=== PATIENT | female | born 1950 | race Caucasian/White ===

== ENCOUNTER 2019-05-23 11:30 | Emergency (ER) | payer MEDICARE, OTHER ==
[2019-05-23 13:03] VITALS: BP 188/84; PULSE 76
[2019-05-23] MEDS ORDERED: Sodium Chloride 0.9% 10 ML Syringe FLUSH PRN (13:06)
[2019-05-23] MEDS ORDERED: Sodium Chloride 0.9% 1,000 ML IV ONE (13:07)
[2019-05-23] MEDS ORDERED: HYDROmorphone 1 MG/ML Syringe IVPUSH ONE (13:07)
[2019-05-23] MEDS ORDERED: Ondansetron 4 MG/2 ML SDV IV ONE (13:07)
[2019-05-23 13:40] LABS: ANION GAP 15.4; CHLORIDE,CL 102 mmol/L (101-111); SODIUM,NA 138 mmol/L (135-145)
[2019-05-23] MEDS ORDERED: Iopamidol 612 MG/ML 100 ML Bottle IVPUSH ONE (13:51)
--- NOTE | 2019-05-23 17:04 | EDM.PDOC ---
"Scribed by Ludivina Rivero 05/23/19 1510 for Henrry Huntley MD ED HPI GENERAL MEDICAL PROBLEM - General Chief Complaint: Gastrointestinal Problem Stated Complaint: STOMACH PROBLEMS Time Seen by Provider: 05/23/19 13:00 Source of Information: Reports: Patient, RN, RN Notes Reviewed History Limitations: Reports: No Limitations - History of Present Illness INITIAL COMMENTS - FREE TEXT/NARRATIVE: Patient is a [id number] female who reports that around 0800 this morning she noted that her stomach started to hurt. Patient points to her lower pelvic area all the way around to her right side up into her epigastric area. Reports she has not taken anything for the pain. Denies any other symptoms. Onset: Today Duration: Getting Worse Location: Reports: Abdomen Severity: Moderate Improves with: Reports: None Worsens with: Reports: None Associated Symptoms: Reports: No Other Symptoms Abdomen Pain Score (Numeric/FACES): 10 - Related Data Allergies Allergy/AdvReac Type Severity Reaction Status Date / Time codeine Allergy Cannot Verified 05/23/19 13:03 Remember Home Meds: Home Meds Calcium Citrate/Vitamin D3 [Citracal + D Maximum Caplet] 2 tab PO BID 10/06/13 [ History] HCTZ/Triamterene [Maxzide 25-37.5 MG] 1 tab PO DAILY 10/06/13 [History] Multivitamin [Multi Vitamin Daily] 1 tab PO DAILY 10/06/13 [History] Pregabalin [Lyrica] 75 mg PO BID 10/06/13 [History] azaTHIOprine [Imuran] 150 mg PO DAILY 10/06/13 [History] Olopatadine [Pataday 0.2% Ophth Soln] 1 drop EYEBOTH ASDIRECTED PRN 03/29/14 [ History] Esomeprazole Magnesium [Nexium] 40 mg PO DAILY 05/23/19 [History] Montelukast [Singulair] 10 mg PO DAILY 05/23/19 [History] Ursodiol 900 mg PO BID 05/23/19 [History] ED ROS GENERAL - Review of Systems Review Of Systems: Comprehensive ROS is negative, except as noted in HPI. ED EXAM, GI/ABD - Physical Exam Exam: See Below Exam Limited By: No Limitations General Appearance: Alert, WD/WN, No Apparent Distress Eyes: Bilateral: Normal Appearance Ears: Normal External Exam, Normal Canal, Hearing Grossly Normal, Normal TMs Nose: Normal Inspection, Normal Mucosa, No Blood Throat/Mouth: Other (dry mouth) Head: Atraumatic, Normocephalic Neck: Normal Inspection, Supple, Non-Tender, Full Range of Motion Respiratory/Chest: No Respiratory Distress Cardiovascular: Normal Peripheral Pulses, Regular Rate, Rhythm, No Edema, No Gallop, No JVD, No Murmur, No Rub (Female) Exam: Deferred Rectal (Female) Exam: Deferred Back Exam: Normal Inspection, Full Range of Motion, NT Extremities: Normal Inspection, Normal Range of Motion, Non-Tender, Normal Capillary Refill, No Pedal Edema Neurological: Alert, Oriented, CN II-XII Intact, Normal Cognition, Normal Gait, Normal Reflexes, No Motor/Sensory Deficits Psychiatric: Normal Affect, Normal Mood Skin Exam: Warm, Dry, Intact, Normal Color, No Rash Course - Vital Signs Last Recorded V/S: Last Vital Signs Temp 98.2 F 05/23/19 12:59 Pulse 76 05/23/19 12:59 Resp 20 05/23/19 12:59 BP 188/84 H 05/23/19 12:59 Pulse Ox 98 05/23/19 12:59 - Orders/Labs/Meds Orders: Active Orders 24 hr Category Date Time Status Peripheral IV Care [RC] . DIRECTED Care 05/23/19 13:07 Active CULTURE URINE [RM] Stat Lab 05/23/19 13:28 Received Sodium Chloride 0.9% [Saline Flush] Med 05/23/19 13:06 Active 10 ml FLUSH ASDIRECTED PRN Peripheral IV Insertion Adult [OM.PC] Stat Oth 05/23/19 13:06 Ordered Medication Orders Sodium Chloride (Saline Flush) 10 ml FLUSH ASDIRECTED PRN PRN Reason: Keep Vein Open Last Admin: 05/23/19 13:14 Dose: 10 ml Labs: Laboratory Tests 05/23/19 05/23/19 05/23/19 Range/Units 13:13 13:13 13:13 WBC 5.9 (5.0-10.0) 10^3/uL RBC 4.32 (4.2-5.4) 10^6/uL Hgb 14.3 (12.0-16.0) g/dL Hct 40.7 (37.0-47.0) % MCV 94.2 (80-100) fL MCH 33.1 (27.0-34.0) pg MCHC 35.1 H (33.0-35.0) g/dL Plt Count 129 L (150-450) 10^3/uL Neut % (Auto) 81.5 H (42.2-75.2) % Lymph % (Auto) 11.4 L (20.5-50.1) % [place] % (Auto) 6.3 (2-8) % Eos % (Auto) 0.5 L (1.0-3.0) % Baso % (Auto) 0.3 (0.0-1.0) % Sodium 138 (135-145) mmol/L Potassium 3.4 L (3.6-5.0) mmol/L Chloride 102 (101-111) mmol/L Carbon Dioxide 24.0 (21.0-31.0) mmol/L Anion Gap 15.4 BUN 16 (7-18) mg/dL Creatinine 0.6 (0.6-1.3) mg/dL Est Cr Clr Drug Dosing 69.00 mL/min Estimated GFR (MDRD) > 60 BUN/Creatinine Ratio 26.66 Glucose 97 (74-105) mg/dL Lactic Acid 2.0 (0.5-2.0) mmol/L Calcium 9.0 (8.4-10.2) mg/dl Total Bilirubin 1.5 H (0.2-1.0) mg/dL AST 31 (10-42) IU/L ALT 16 (10-60) IU/L Alkaline Phosphatase 57 (42-121) IU/L Total Protein 7.4 (6.7-8.2) g/dl Albumin 3.8 (3.2-5.5) g/dl Globulin 3.6 Albumin/Globulin Ratio 1.06 Amylase 103 H (28-100) U/L Lipase 31 (22-51) U/L Urine Color (YELLOW) Urine Appearance (CLEAR) Urine pH (5.0-9.0) Ur Specific Bath (1.005-1.030) Urine Protein (NEGATIVE) Urine Glucose (UA) (NEGATIVE) Urine Ketones (NEGATIVE) Urine Occult Blood (NEGATIVE) Urine Nitrite (NEGATIVE) Urine Bilirubin (NEGATIVE) Urine Urobilinogen (0.2-1.0) mg/dL Ur Leukocyte Esterase (NEGATIVE) Urine RBC /HPF Urine WBC (0-5/HPF) /HPF Ur Epithelial Cells (NOT SEEN) /HPF Urine Bacteria (0-FEW/HPF) /HPF Urine Mucus (NOT SEEN) /LPF 05/23/19 Range/Units 13:28 WBC (5.0-10.0) 10^3/uL RBC (4.2-5.4) 10^6/uL Hgb (12.0-16.0) g/dL Hct (37.0-47.0) % MCV (80-100) fL MCH (27.0-34.0) pg MCHC (33.0-35.0) g/dL Plt Count (150-450) 10^3/uL Neut % (Auto) (42.2-75.2) % Lymph % (Auto) (20.5-50.1) % [place] % (Auto) (2-8) % Eos % (Auto) (1.0-3.0) % Baso % (Auto) (0.0-1.0) % Sodium (135-145) mmol/L Potassium (3.6-5.0) mmol/L Chloride (101-111) mmol/L Carbon Dioxide (21.0-31.0) mmol/L Anion Gap BUN (7-18) mg/dL Creatinine (0.6-1.3) mg/dL Est Cr Clr Drug Dosing mL/min Estimated GFR (MDRD) BUN/Creatinine Ratio Glucose (74-105) mg/dL Lactic Acid (0.5-2.0) mmol/L Calcium (8.4-10.2) mg/dl Total Bilirubin (0.2-1.0) mg/dL AST (10-42) IU/L ALT (10-60) IU/L Alkaline Phosphatase (42-121) IU/L Total Protein (6.7-8.2) g/dl Albumin (3.2-5.5) g/dl Globulin Albumin/Globulin Ratio Amylase (28-100) U/L Lipase (22-51) U/L Urine Color Yellow (YELLOW) Urine Appearance Slightly cloudy (CLEAR) Urine pH 8.5 (5.0-9.0) Ur Specific [place] 1.020 (1.005-1.030) Urine Protein 30 H (NEGATIVE) Urine Glucose (UA) Negative (NEGATIVE) Urine Ketones Trace H (NEGATIVE) Urine Occult Blood Trace-intact H (NEGATIVE) Urine Nitrite Negative (NEGATIVE) Urine Bilirubin Negative (NEGATIVE) Urine Urobilinogen 1.0 (0.2-1.0) mg/dL Ur Leukocyte Esterase Trace H (NEGATIVE) Urine RBC 0-5 /HPF Urine WBC 0-5 (0-5/HPF) /HPF Ur Epithelial Cells Few (NOT SEEN) /HPF Urine Bacteria Rare (0-FEW/HPF) /HPF Urine Mucus Few H (NOT SEEN) /LPF Meds: Medications Generic Name Dose Route Start Last Admin Trade Name Freq PRN Reason Stop Dose Admin Sodium Chloride 10 ml 05/23/19 13:06 05/23/19 13:14 Saline Flush FLUSH 10 ml ASDIRECTED PRN Administration Keep Vein Open Discontinued Medications Generic Name Dose Route Start Last Admin Trade Name Freq PRN Reason Stop Dose Admin Hydromorphone HCl 1 mg 05/23/19 13:07 05/23/19 13:14 Dilaudid IVPUSH 05/23/19 13:08 1 mg ONETIME ONE Administration Sodium Chloride 1,000 mls @ 999 mls/hr 05/23/19 13:07 05/23/19 13:14 Normal Saline IV 05/23/19 14:07 999 mls/hr .BOLUS ONE Administration Iopamidol 100 ml 05/23/19 13:51 05/23/19 14:32 Isovue-300 (61%) IVPUSH 05/23/19 13:52 100 ml ONETIME ONE Administration Ondansetron HCl 4 mg 05/23/19 13:07 05/23/19 13:14 Zofran IV 05/23/19 13:08 4 mg ONETIME ONE Administration - Radiology Interpretation Free Text/Narrative:: [facility] Final Radiology Report Call: [phone] assistance Online chat: [email or web address] Name: LEON RAMEY Age: 68Years F Date: 05/23/2019 SSN: -- : [id number] Study: CT ABDOMEN/PELVIS W Requesting Physician: HENRRY HUNTLEY Images: [id number] Addl Studies: Provided Clinical History: Contrast: With Contrast Medium: Isovue 300 Contrast Amount: 100 mL Contrast Method: LAC Page 1 of 2 PROCEDURE INFORMATION: Exam: CT Abdomen And Pelvis With Contrast Exam date and time: 05/23/2019 2:08 PM Age: 68 years old Clinical indication: Abdominal pain; Localized; Right lower quadrant (rlq) TECHNIQUE: Imaging protocol: Computed tomography of the abdomen and pelvis with intravenous contrast. Radiation optimization: All CT scans at this facility use at least one of these dose optimization techniques: automated exposure control; mA and/or kV adjustment per patient size (includes targeted exams where dose is matched to clinical indication); or iterative reconstruction. Contrast material: ISOVUE 300; Contrast volume: 100 ml; Contrast route: LAC; COMPARISON: CT Abdomen Pelvis w Cont 07/08/2018 2:25 PM FINDINGS: Lungs: Atelectatic changes noted within the lung bases. Heart: The heart demonstrates mild diffuse enlargement. Liver: There is cortical irregularity of the liver with decreased attenuation present consistent with fatty infiltration and possible hepatocellular disease such as cirrhosis. Gallbladder and bile ducts: Multiple calcified gallstones are present. Pancreas: The pancreas is normal. Spleen: Splenomegaly is present. Adrenals: The adrenal glands are normal. Kidneys and ureters: The kidneys are normal. Stomach and bowel: Mild diverticulosis is present in the distal colon. Appendix: A normal appendix is identified. Intraperitoneal space: No significant fluid collection. LEON RAMEY | Final Radiology Report CONFIDENTIALITY STATEMENT This report is intended only for use by the referring physician, and only in accordance with law. If you received this in error, call [phone]. Page 2 of 2 Vasculature: The vasculature demonstrates diffuse mild atherosclerotic calcification. The vasculature demonstrates diffuse mild atherosclerotic calcification. Lymph nodes: No enlarged lymph nodes. Bladder: The bladder is normal. Reproductive: The uterus is normal. Bones/joints: The lumbar spine demonstrates mild degenerative changes at multiple levels. Soft tissues: Right inguinal hernia is present with fluid density noted within the canal. IMPRESSION: 1. There is cortical irregularity of the liver with decreased attenuation present consistent with fatty infiltration and possible hepatocellular disease such as cirrhosis. 2. Splenomegaly is present. 3. Multiple calcified gallstones are present. 4. Right inguinal hernia is present with fluid density noted within the canal. 5. Mild diverticulosis is present in the distal colon. 6. A normal appendix is identified. Thank you for allowing us to participate in the care of your patient. Dictated and Authenticated by: Brandon Auguste DO 05/23/2019 3:00 PM Central Time ([place] & [place]) Addendum created by Brandon Auguste DO on 05/23/2019 4:41 PM Central Time ([place] & [place]) There is no bowel present within the right inguinal hernia. Fluid-filled density is noted. Findings are indeterminate. Initial Report created on 05/23/2019 3:00 PM Central Time ([place] & [place]) - Re-Assessments/Exams Free Text/Narrative Re-Assessment/Exam: 05/23/19 16:[address] Garay via [facility]. She was unable to determine if the fluid filled Rt ing. hernia contained bowel or not. I requested an addendum to the radiologist's report, which states there is no bowel contained in the hernia. Being the hernia does not contain bowel, and the pt's pain has been relieved, the pt may f/u in surgery clinic for further evaluation. Departure - Departure Time of Disposition: 17:00 Disposition: Home, Self-Care 01 Condition: Good Clinical Impression: Right inguinal hernia - Discharge Information *PRESCRIPTION DRUG MONITORING PROGRAM REVIEWED*: No *COPY OF PRESCRIPTION DRUG MONITORING REPORT IN PATIENT DIANELYS: No Instructions: Inguinal Hernia, Adult, [id number] Forms: ED Department Discharge Additional Instructions: Light activity as tolerated. Avoid heavy lifting, straining, or coughing. Call [facility] in [place] to schedule an appointment. Return to ER or your primary clinic if the pain becomes severe. Sepsis Event Note - Evaluation Sepsis Screening Result: No Definite Risk - Focused Exam Vital Signs: Vital Signs Temp Pulse Resp BP Pulse Ox 05/23/19 12:59 98.2 F 76 20 188/84 H 98 Date Exam was Performed: 05/23/19 Time Exam was Performed: 16:57 - My Orders Last 24 Hours: My Active Orders 05/23/19 13:06 Sodium Chloride 0.9% [Saline Flush] 10 ml FLUSH ASDIRECTED PRN Peripheral IV Insertion Adult [OM.PC] Stat 05/23/19 13:07 Peripheral IV Care [RC] . DIRECTED 05/23/19 13:28 CULTURE URINE [RM] Stat - Assessment/Plan Last 24 Hours: My Active Orders 05/23/19 13:06 Sodium Chloride 0.9% [Saline Flush] 10 ml FLUSH ASDIRECTED PRN Peripheral IV Insertion Adult [OM.PC] Stat 05/23/19 13:07 Peripheral IV Care [RC] . DIRECTED 05/23/19 13:28 CULTURE URINE [RM] Stat I have read and agree with the documentation that has been completed regarding this visit. By signing this record, I attest that the documentation was completed in my physical presence and is an accurate record of the encounter."
== END 2019-05-23 17:15 | disposition home or self-care (01) ==
LOC: DL.ED 11:30
DX: K40.90 Unilateral inguinal hernia, without obstruction or gangrene, not specified as recurrent (principal); Z79.899 Other long term (current) drug therapy
CPT/HCPCS: 36415; 74177; 80053; 81001; 82150; 83605; 83690; 85025; 87086; 96361; 96374; 96375; 99284-25; J1170; J2405; J7030; Q9967

== ENCOUNTER → 2019-06-02 | Day surgery (SDC) | payer MEDICARE, OTHER ==
[~2019-06-02] MED LIST: Dextrose 5%-0.45% NaCl 1,000 ML IV SCH; Midazolam 1 MG/ML 2 ML SDV IV ONE; Midazolam 1 MG/ML 2 ML SDV ONE; Sodium Chloride 0.9% 10 ML Syringe FLUSH PRN; fentaNYL 100 MCG/2 ML SDV IV ONE; fentaNYL 100 MCG/2 ML SDV ONE
[2019-06-02 11:21] VITALS: BP 120/55; PULSE 65
--- NOTE | 2019-06-02 16:00 | OR ---
DATE: 06/02/2019 PROCEDURE PERFORMED: Esophagogastroduodenoscopy and multiple pinch biopsies. INSTRUMENT USED: [id number]-HQ190 Olympus video panendoscope. PREMEDICATIONS: No oral or topical anesthesia used. Fentanyl 100 mcg intravenous, Versed 1.5 mg intravenous. Nasal O2 cannula. The procedure was done pulse oximetry, BP recording, and cardia monitor. INDICATION: The patient with chronic liver disease, on PPI, with persistent upper abdominal pain, unexplained, not responsive to medical measures. Esophagogastroduodenoscopy is performed for detection of any active erosive lesions, malignancy also under consideration, H. pylori status to be determined, endoscopic hemostasis therapy if needed. DESCRIPTION OF PROCEDURE: The scope was passed with ease. Adequate visualization of the esophagus was made from proximal to distal areas. No upper esophageal lesions identified. No distal esophageal stricture. No uphill or downhill esophageal varices. No Leann-Byers tear. No evidence of erosive esophagitis by Beltrami criteria. No esophageal polyp or tumor mass identified. Z-line was seen at around 39 cm distal to the oral verge, configuration consistent with grade 1 by ZAP classification. No proximal gastric varices noted. Gastric fundus examination by retroflexion showed no polypoid lesions. No esophageal polyp or mass lesions noted. No gastric ulcer, malignant mass, or vascular ectasia identified. Duodenal bulb showed no ulcer. Visualized second part of the duodenum is unremarkable. Multiple pinch biopsies were obtained from the gastric antrum and proximal body and sent for PyloriTek test for H. pylori, and if negative in an hour, tissues to be sent for histopathology. No bleeding was noted from any of the visualized areas at the completion of examination. Photographs were taken of the duodenal bulb, gastric antrum, fundus, and distal esophagus. IMPRESSION: Normal study. The patient tolerated the procedure well. [facility] /[id number]
== END | disposition home or self-care (01) ==
LOC: DL.ENDO 07:23
PROVIDERS: ATTEND Internal Medicine Gastroenterology
DX: K29.50 Unspecified chronic gastritis without bleeding (principal); K74.60 Unspecified cirrhosis of liver; K21.9 Gastro-esophageal reflux disease without esophagitis; I10 Essential (primary) hypertension; E66.09 Other obesity due to excess calories; Z79.899 Other long term (current) drug therapy; Z68.38 Body mass index [BMI] 38.0-38.9, adult
CPT/HCPCS: 43239; 87077; J2250; J3010; J7042

== ENCOUNTER 2020-03-14 06:00 | Day surgery (SDC) | payer MEDICARE, OTHER ==
[2020-03-14] MEDS ORDERED: Midazolam 1 MG/ML 2 ML SDV IV ONE ×7 (06:01→07:10)
[2020-03-14] MEDS ORDERED: fentaNYL 100 MCG/2 ML SDV IV ONE ×3 (06:01→07:00)
[2020-03-14] MEDS ORDERED: Midazolam 1 MG/ML 2 ML SDV ONE (06:12)
[2020-03-14] MEDS ORDERED: fentaNYL 100 MCG/2 ML SDV ONE (06:12)
[2020-03-14] MEDS ORDERED: Dextrose 5%-0.45% NaCl 1,000 ML IV SCH (06:45)
--- NOTE | 2020-03-14 07:41 | OR ---
DATE: 03/14/2020 PROCEDURES: Total colonoscopy and NBI. INSTRUMENT USED: [id number]-[id number] Olympus video colonoscope. PREMEDICATIONS: Fentanyl 100 mcg intravenous, Versed 4 mg intravenous, nasal O2 cannula. The procedure was done under pulse oximetry, BP recording, and catia designer. INDICATION: The patient with persistent right-sided lower abdominal pain, unexplained and not responsive to medical measures. Colonoscopic examination is done for detection of any polypoid lesions and removal, endoscopic hemostasis therapy if needed. DESCRIPTION OF PROCEDURE: Initial rectal exam showed external hemorrhoidal tags. Rigid anoscopy showed small internal hemorrhoids without bleeding from them. The colonoscope was passed with ease. Prominent venous channels were noted in the rectum, NBI views were obtained, photographs were taken. The scope was passed with ease up to the ileocecal area. Photographs were taken of the normal-appearing cecum, identified by landmarks of appendiceal orifice and double-bulged ileocecal folds. No bleeding was noted from any of the visualized areas at the commencement of the examination. Bowel preparation was found to be adequate, [place] scale 2 in the right colon, 3 in transverse and left colon, total score 8. No stricture. No vascular ectasia. No large isolated ulcerations seen. No evidence of diffuse inflammatory bowel disease in the form of friability, contact bleeding, or ulcerations. No polyp or tumor mass identified. Probing the proximal sides of folds and flexures using adequate distention and clearing up the stool material, withdrawal of the scope was made, cecum to rectum time over 6 minutes. No bleeding was noted from any of the visualized areas at the completion of examination. IMPRESSION: 1. External and internal hemorrhoids. 2. Rectal varices. The patient tolerated the procedure well. [facility] /[id number]
[2020-03-14 09:44] VITALS: BP 154/71; PULSE 64
== END 2020-03-14 09:19 | disposition home or self-care (01) ==
LOC: DL.ENDO 06:00
PROVIDERS: ATTEND Internal Medicine Gastroenterology
DX: K64.4 Residual hemorrhoidal skin tags (principal); K64.8 Other hemorrhoids; I86.8 Varicose veins of other specified sites; E66.09 Other obesity due to excess calories; K21.9 Gastro-esophageal reflux disease without esophagitis; Z68.37 Body mass index [BMI] 37.0-37.9, adult
CPT/HCPCS: 45378; J2250; J3010; J7042

== ENCOUNTER 2023-09-25 17:24 | Emergency (ER) | payer MEDICARE, OTHER ==
[2023-09-25] MEDS: Morphine 4 MG/ML Syringe IVPUSH ONE (17:52)
[2023-09-25 18:32] LABS: HEMATOCRIT 27.2 % (37.0-47.0); HEMOGLOBIN 8.9 g/dL (12.0-16.0); MEAN CORPUSCULAR HEMOGLOBIN 38.2 pg (27.0-34.0); MEAN CORPUSCULAR HGB CONC 32.7 g/dL (33.0-35.0); MEAN CORPUSCULAR VOLUME 116.7 fL (80-100); PLATELET COUNT,PLT 79 10^3/uL (150-450); RED BLOOD CELL COUNT 2.33 10^6/uL (4.2-5.4); WHITE BLOOD CELL COUNT,WBC 2.9 10^3/uL (5.0-10.0)
[2023-09-25 18:52] LABS: BASOPHILS PERCENT AUTO 0.3 % (0.0-1.0); EOSINOPHILS PERCENT AUTO 6.1 % (1.0-3.0); LYMPHOCYTES PERCENT AUTO 12.9 % (20.5-50.1); MONOCYTES PERCENT AUTO 13.6 % (2-8); NEUTROPHILS PERCENT AUTO 67.1 % (42.2-75.2)
[2023-09-25 18:53] VITALS: BP 125/95; PULSE 123
[2023-09-25 19:02] LABS: ALBUMIN 2.7 g/dL (3.4-5.0); ANION GAP 13.3 mEq/L (7-13); BILIRUBIN TOTAL 1.7 mg/dL (0.2-1.0); BUN/CREATININE RATIO 15.1 (No establ ref range); CALCIUM 8.1 mg/dL (8.5-10.1); CREATININE 0.73 mg/dL (0.55-1.02); EST CRCL DRUG DOSING (CG) 52.66 mL/min; POTASSIUM,K 4.3 mmol/L (3.5-5.1); PROTEIN TOTAL,TP 6.5 g/dL (6.4-8.2)
[2023-09-25 19:04] LABS: A/G RATIO 0.71; INR 1.6 (0.9-1.2); PROTHROMBIN TIME 16.3 SEC (9.0-12.0)
[2023-09-25 19:35] LABS: BAND PERCENT MAN 3 %; SEG NEUTROPHILS PERCENT MAN 76 % (42-75)
[2023-09-25 19:36] LABS: EOSINOPHILS PERCENT MAN 6 % (1-3); LYMPHOCYTES PERCENT MAN 11 % (20-50); MONOCYTES PERCENT MAN 4 % (2-8)
== END 2023-09-25 19:20 ==
LOC: DL.ED 17:24
DX: S72.142A Displaced intertrochanteric fracture of left femur, initial encounter for closed fracture (principal); I10 Essential (primary) hypertension; E66.9 Obesity, unspecified; Z68.31 Body mass index [BMI] 31.0-31.9, adult; Z88.5 Allergy status to narcotic agent; Z79.82 Long term (current) use of aspirin; Z79.899 Other long term (current) drug therapy; Z86.16 Personal history of COVID-19; W18.11XA Fall from or off toilet without subsequent striking against object, initial encounter
CPT/HCPCS: 36415; 72192; 73700; 80053; 85025; 85610; 93005; 96374; 99284; J2270

== ENCOUNTER 2023-10-31 10:31 | Emergency (ER) | payer MEDICARE, OTHER ==
[2023-10-31] MEDS: Sodium Chloride 0.9% 1,000 ML IV ONE (10:45)
[2023-10-31] MEDS: Ondansetron 4 MG/2 ML SDV IVPUSH ONE (10:46)
[2023-10-31] MEDS: Lidocaine 2% Viscous Solution 15 ML UD PO ONE (10:46)
[2023-10-31] MEDS: Famotidine 20 MG/2 ML SDV IVPUSH ONE (10:46)
[2023-10-31 11:18] VITALS: BP 104/60; PULSE 70
[2023-10-31 11:22] LABS: LACTIC ACID 1.5 mmol/L (0.4-2.0)
[2023-10-31 11:24] LABS: ALANINE AMINOTRANSFERASE,ALT 18 U/L (14-59); ALBUMIN 2.3 g/dL (3.4-5.0); ALKALINE PHOSPHATASE 162 U/L (46-116); ANION GAP 12.7 mEq/L (7-13); ASPARTATE AMNIOTRANSFERASE,AST 49 U/L (15-37); BILIRUBIN TOTAL 1.7 mg/dL (0.2-1.0); BLOOD UREA NITROGEN,BUN 12 mg/dL (7-18); CALCIUM 8.1 mg/dL (8.5-10.1); CARBON DIOXIDE,CO2 23 mmol/L (21-32); CHLORIDE,CL 105 mmol/L (98-107); CREATININE 0.63 mg/dL (0.55-1.02); GLUCOSE RANDOM 109 mg/dL (70-99); LIPASE 13 U/L (16-77); MAGNESIUM 1.9 mg/dL (1.8-2.4); POTASSIUM,K 3.7 mmol/L (3.5-5.1); PROTEIN TOTAL,TP 6.3 g/dL (6.4-8.2); SODIUM,NA 137 mmol/L (136-145)
[2023-10-31 11:44] LABS: A/G RATIO 0.58; ESTIMATED GFR 92 mL/min (>=60)
[2023-10-31] MEDS: Iopamidol 612 MG/ML 100 ML Bottle IVPUSH ONE (11:58)
[2023-10-31] MEDS: Morphine 2 MG/ML SYRINGE IVPUSH ONE ×2 (12:04→17:01)
[2023-10-31] MEDS: Ketorolac 30 MG/ML SDV IVPUSH ONE (13:07)
[2023-10-31 17:14] LABS: APPEARANCE,URINE CLEAR (CLEAR); BILIRUBIN,URINE SMALL (NEGATIVE); COLOR,URINE DARK YELLOW (YELLOW); GLUCOSE,URINE NEGATIVE (NEGATIVE); KETONES,URINE 15 (NEGATIVE); LEUKOCYTE ESTERASE,URINE NEGATIVE (NEGATIVE); NITRITE,URINE NEGATIVE (NEGATIVE); OCCULT BLOOD,URINE TRACE-INTACT (NEGATIVE); PH,URINE 5.5 (5.0-9.0); PROTEIN,URINE NEGATIVE (NEGATIVE); UROBILINOGEN,URINE 0.2 mg/dL (0.2-1.0)
[2023-10-31 17:38] LABS: BACTERIA,URINE FEW /HPF (0-FEW/HPF); EPITHELIAL CELLS,URINE FEW /HPF (NOT SEEN); MUCUS,URINE MODERATE /LPF (NOT SEEN); WBC,URINE 20-30 /HPF (0-5/HPF)
== END 2023-10-31 17:02 ==
LOC: DL.ED 10:31
DX: E86.0 Dehydration (principal); D61.818 Other pancytopenia; C25.0 Malignant neoplasm of head of pancreas; C78.7 Secondary malignant neoplasm of liver and intrahepatic bile duct; I10 Essential (primary) hypertension; E66.9 Obesity, unspecified; Z86.16 Personal history of COVID-19; Z79.82 Long term (current) use of aspirin; Z79.899 Other long term (current) drug therapy; Z88.5 Allergy status to narcotic agent; Z79.60 Long term (current) use of unspecified immunomodulators and immunosuppressants
CPT/HCPCS: 36415; 74177; 80053; 81001; 82947; 83605; 83690; 83735; 84484; 85025; 93005; 93010; 96361; 96374; 96375; 96376; 99285; 99285-25; A9270-GY; J1885; J2270; J2405; J3490; J7030; Q9967

== ENCOUNTER 2023-12-01 12:45 | Emergency (ER) | payer MEDICARE, OTHER ==
[2023-12-01 12:35] VITALS: BP 102/62; PULSE 106
[2023-12-01 13:10] LABS: BASOPHILS PERCENT AUTO 0.6 % (0.0-1.0); EOSINOPHILS PERCENT AUTO 1.8 % (1.0-3.0); HEMATOCRIT 24.1 % (37.0-47.0); HEMOGLOBIN 8.1 g/dL (12.0-16.0); LYMPHOCYTES PERCENT AUTO 17.5 % (20.5-50.1); MEAN CORPUSCULAR HEMOGLOBIN 37.5 pg (27.0-34.0); MEAN CORPUSCULAR HGB CONC 33.6 g/dL (33.0-35.0); MEAN CORPUSCULAR VOLUME 111.6 fL (80-100); MONOCYTES PERCENT AUTO 9.5 % (2-8); NEUTROPHILS PERCENT AUTO 70.6 % (42.2-75.2); RED BLOOD CELL COUNT 2.16 10^6/uL (4.2-5.4); WHITE BLOOD CELL COUNT,WBC 3.3 10^3/uL (5.0-10.0)
[2023-12-01] MEDS: Lactated Ringers 1,000 ML IV ONE (13:21)
[2023-12-01 13:34] LABS: ALBUMIN 1.7 g/dL (3.4-5.0); ANION GAP 15.9 mEq/L (7-13); BILIRUBIN TOTAL 5.5 mg/dL (0.2-1.0); BUN/CREATININE RATIO 33.7 (No establ ref range); CALCIUM 8.6 mg/dL (8.5-10.1); CREATININE 0.92 mg/dL (0.55-1.02); EST CRCL DRUG DOSING (CG) 41.79 mL/min; POTASSIUM,K 4.9 mmol/L (3.5-5.1); PROTEIN TOTAL,TP 5.7 g/dL (6.4-8.2)
[2023-12-01 13:35] LABS: A/G RATIO 0.43
[2023-12-01 13:41] LABS: PLATELET COUNT,PLT 22 10^3/uL (150-450)
[2023-12-01] MEDS: Lactated Ringers 500 ML IV ONE (14:08)
[2023-12-01 14:57] LABS: LACTIC ACID 7.4 mmol/L (0.4-2.0)
[2023-12-01] MEDS: HYDROmorphone 1 MG/ML Syringe IVPUSH ONE (15:31)
[2023-12-01] MEDS: Lactated Ringers 1,000 ML IV STA (18:06)
== END 2023-12-01 16:17 ==
LOC: DL.ED 12:45
DX: C25.9 Malignant neoplasm of pancreas, unspecified (principal); D69.6 Thrombocytopenia, unspecified; I10 Essential (primary) hypertension; E66.9 Obesity, unspecified; Z68.28 Body mass index [BMI] 28.0-28.9, adult; Z86.16 Personal history of COVID-19; Z79.899 Other long term (current) drug therapy; Z88.5 Allergy status to narcotic agent
CPT/HCPCS: 36415; 71045; 80053; 83605; 85025; 87040; 93005; 96361; 96374; 99285-25; J1170; J7120